=== PATIENT | male | born 1940 | race Caucasian/White ===

== ENCOUNTER 2020-11-07 16:45 | Emergency (ER) | payer OTHER ==
[~2020-11-07] VITALS: Ht 172.7 cm; Wt 72.6 kg
[2020-11-07 16:54] VITALS: BP 162/72
[2020-11-07] MEDS ORDERED: HYDROcodone/APAP 5/325 MG 1 TAB TAB PO ONE (17:30)
--- NOTE | 2020-11-07 18:01 | NUR ---
C/O ACHING AND NON RADIATING R KNEE PAIN X3 DAYS S/P FALLING ONTO R KNEE 3 DAYS AGO. PT STATES HE IS UNABLE TO WALK DUE TO PAIN 09/08.
--- NOTE | 2020-11-07 18:29 | NUR ---
PT PLACED IN RIGHT KNEE IMMOBILIZOR, PT GIVEN CRUTCHES, CRUTCHES ADJUSTED TO PT HEIGHT, PT GIVEN ONE ON ONE INSTRUCTIONS, PT SHOWED PROPER DEMENSTRATION OF CRUTCHE USAGE. MARY LILLY NOTIFIED
--- NOTE | 2020-11-08 11:54 | NUR ---
left voicemail to have patient return to ER for ct scan of R knee per Dr. Garrett
== END 2020-11-07 18:44 | disposition home or self-care (01) ==
LOC: MED 16:45
DX: S80.01XA Contusion of right knee, initial encounter (principal); E11.9 Type 2 diabetes mellitus without complications; I10 Essential (primary) hypertension; Z98.890 Other specified postprocedural states; X58.XXXA Exposure to other specified factors, initial encounter; Y93.89 Activity, other specified; Y92.89 Other specified places as the place of occurrence of the external cause; Y99.8 Other external cause status
CPT/HCPCS: 73562; 99283

== ENCOUNTER 2020-11-08 15:38 | Emergency (ER) | payer OTHER ==
[~2020-11-08] VITALS: Ht 170.2 cm; Wt 81.6 kg
[2020-11-08 15:50] VITALS: BP 152/78
[2020-11-08 16:57] LABS: BASOPHILS # (AUTO) 0.1 K/uL (0.00-0.22); BASOPHILS % (AUTO) 0.9 % (0.0-2.0); EOSINOPHILS # (AUTO) 0.1 K/uL (0-0.4); EOSINOPHILS % (AUTO) 1.5 % (0.0-4.0); HEMATOCRIT 28.6 % (36-52); HEMOGLOBIN 9.3 g/dL (12.0-18.0); LYMPHOCYTES # (AUTO) 1.2 K/uL (2.0-11.5); LYMPHOCYTES % (AUTO) 17.5 % (20.5-51.1); MEAN CORPUSCULAR HEMOGLOBIN 34 pg (27-31); MEAN CORPUSCULAR HGB CONC 32 g/dL (33-37); MEAN CORPUSCULAR VOLUME 105.6 fL (80-94); MONOCYTES # (AUTO) 0.5 K/uL (0.8-1.0); MONOCYTES % (AUTO) 7.8 % (1.7-9.3); NEUTROPHILS # (AUTO) 4.8 K/uL (1.8-7.7); NEUTROPHILS % (AUTO) 72.3 % (42.2-75.2); PLATELET COUNT (AUTO) 153 K/uL (140-450); RED BLOOD CELL COUNT(AUTO) 2.71 MIL/uL (4.20-6.10); RED CELL DISTRIBUTION WIDTH 15.5 % (11.6-13.7); WHITE BLOOD COUNT (AUTO) 6.7 K/uL (4.8-10.8)
[2020-11-08 17:35] LABS: ALBUMIN 3.5 g/dL (3.4-5.0); ANION GAP 17.8 (8-16); ASPARTATE AMINOTRANSFERASE 17 U/L (15-37); CARBON DIOXIDE 26.3 mmol/L (21-32); CHLORIDE 100 mmol/L (98-107); GLUCOSE 170 mg/dL (74-106); POTASSIUM 5.1 mmol/L (3.5-5.1); SODIUM SERUM 139 mmol/L (136-145); TOTAL BILIRUBIN 0.5 mg/dL (0.0-1.0)
[2020-11-08 17:46] LABS: UREA NITROGEN, BLOOD 96 mg/dL (7-18)
--- NOTE | 2020-11-08 17:50 | NUR ---
CC: LEFT KNEE/BRASWELL FRACTURE. PT STATES HE WAS TOLD TO COME BACK TO ER BY DR Pichardo FRACTURE ON LEFT KNEE. PATIENT HAD INJURY ON THURSDAY AFTER A FALL AT HOME. STATES DR ROSALES CALLED HIM TO COME BACK TO ER
--- NOTE | 2020-11-08 19:41 | NUR ---
Note cesardillan in EDM - 11/08/20 at 1942 by [id number] CC: LEFT KNEE/BRASWELL FRACTURE. PT STATES HE WAS TOLD TO COME BACK TO ER BY DR Pichardo FRACTURE ON LEFT KNEE. PATIENT HAD INJURY ON THURSDAY AFTER A FALL AT HOME. STATES DR ROSALES CALLED HIM TO COME BACK TO ER
[2020-11-08 19:42] VITALS: BP 152/78
== END 2020-11-08 19:43 | disposition home or self-care (01) ==
LOC: MED 15:38
DX: S82.201A Unspecified fracture of shaft of right tibia, initial encounter for closed fracture (principal); E11.9 Type 2 diabetes mellitus without complications; I10 Essential (primary) hypertension; W19.XXXA Unspecified fall, initial encounter; Y93.89 Activity, other specified; Y92.89 Other specified places as the place of occurrence of the external cause; Y99.8 Other external cause status
CPT/HCPCS: 36415; 73700; 80053; 85025; 99284